=== PATIENT | female | born 1990 | race African-American/Black ===

== ENCOUNTER 2017-11-06 21:36 | Emergency (ER) | payer MEDICAID ==
[2017-11-06] MEDS: CLINDAMYCIN 150 MG CAP PO ONE (22:22)
--- NOTE | 2017-11-06 22:22 | Emergency Department Record ---
History of Present Illness - General Chief complaint: Abscess Stated complaint: RASH UNDER ARMS Time Seen by Provider: 11/06/17 22:13 Source: Patient Mode of Arrival: Ambulatory Limitations: No limitations - History of Present Illness Initial comments: The patient is here due to a problem with her chronic axilla abscesses. She has a long hx of Hidraadenitis and now has had a flare up in the R axilla for the last few days. She did have a referral to a general surgeon but lost it. There has been no swelling, fever, or drainage. MD complaint: Abscess/boil, Rash Onset/Timin -: Days(s) - Related Data Previous Rx's Medication Instructions Recorded Clindamycin HCl [Cleocin HCl] 300 mg PO QID #28 capsule 11/06/17 Naproxen [Naprosyn] 500 mg PO BID #14 tablet. 11/06/17 Allergies Allergy/AdvReac Type Severity Reaction Status Date / Time amoxicillin [From Amoxil] Allergy RASH Verified 11/06/17 22:19 Travel Screening - Travel/Exposure Within Last 30 Days Have you traveled within the last 30 days?: No - Travel/Exposure Within Last Year Have you traveled outside the [place] in the last year?: No - Additonal Travel Details Have you been exposed to anyone with a communicable illness?: No - Travel Symptoms Symptom Screening: None Review of Systems Constitutional: Denies: Chills, Fever Past Medical History - SOCIAL HISTORY Smoking Status: Light tobacco smoker (<10/day) Alcohol Use: None Drug Use: None - RESPIRATORY Hx Respiratory Disorders: No - CARDIOVASCULAR Hx Cardio Disorders: No - NEURO Hx Neuro Disorders: No - GI Hx GI Disorders: No - Hx Genitourinary Disorders: No - ENDOCRINE Hx Endocrine Disorders: No - MUSCULOSKELETAL Hx Musculoskeletal Disorders: No - PSYCH Hx Psych Problems: No - HEMATOLOGY/ONCOLOGY Hx Hematology/Oncology Disorders: No Family Medical History Any Significant Family History?: No Hx Cancer: Mother, Grandparents Hx Resp Disorders: Mother Physical Exam - General General Appearance: Alert, Oriented x3, Cooperative, No acute distress - Head Head exam: Atraumatic, Normocephalic, Normal inspection - Eye Eye exam: Normal appearance, PERRL - Neck Neck exam: Normal inspection, Full ROM. negative: Tenderness - Respiratory Respiratory exam: Normal lung sounds bilaterally. negative: Respiratory distress - Cardiovascular Cardiovascular Exam: Regular rate, Normal rhythm, Normal heart sounds - Extremities Extremities exam: Other (There is extensive chronic scarring to the bilateral axilla areas with an area of induration over the R mid axilla. The indurated area is quite tender but not swollen, erythematous or warm. The area of induration measures 2x2 cm. There is no fluctuance or area to I and D.). negative: Normal inspection Course Vital Signs 11/06/17 21:56 Temperature 98.1 F Pulse Rate [ 79 Pulse Ox Probe] Respiratory 18 Rate Blood Pressure 119/69 [Left Arm] Pulse Ox 98 - Reevaluation(s) Reevaluation #1: I did explain to the patient the need for oral Abx's and pain medicines and warm soaks. She is to see her PCP and see a general surgeon where she lives for definite care. 11/06/17 22:30 Disposition Disposition: Discharge Clinical Impression: Hydradenitis Disposition: Home, Self-Care Condition: (2) Stable Instructions: Abscess (ED) Additional Instructions: Please continue the Clindamycin and take Naprosyn for pain. Please see your family doctor in [place] to obtain the referral for a general surgeon. Return to the ER for any worsening pain, fever, or swelling. Prescriptions: Clindamycin HCl [Cleocin HCl] 300 mg PO QID #28 capsule Naproxen [Naprosyn] 500 mg PO BID #14 tablet.dr Forms: Patient Portal Access Time of Disposition: 22:22 Quality - Quality Measures Quality Measures: N/A - Blood Pressure Screening View Details: Yes Does Patient Have Any of the Following: No Blood Pressure Classification: Normal BP Reading Systolic Measurement: 119 Diastolic Measurement: 69 Screening for High Blood Pressure: < Normal BP, F/U Not Required > [G8783]
[2017-11-06] MEDS: NAPROXEN 250 MG TABLET PO ONE (22:24)
== END 2017-11-06 22:36 | disposition home or self-care (01) ==
LOC: ER 21:36
DX: L73.2 Hidradenitis suppurativa (principal)
CPT/HCPCS: 99282